=== PATIENT | female | born 1995 | race Caucasian/White ===

== ENCOUNTER 2017-08-18 09:38 | Emergency (ER) | payer OTHER ==
[2017-08-18 10:02] VITALS: BP 130/70
[2017-08-18] MEDS ORDERED: Ketorolac INJ* 30 MG/ML 1 ML VIAL IM ONE (11:35)
--- NOTE | 2017-08-18 11:41 | UC ---
Back Pain HPI - HPI Summary HPI Summary: 21 female presents to with complaints of mid back pain that began 2 days ago. States it is intermittent and feels tight and achey. Radiates into her ribs and front. Worse with palpation and movement. Denies nausea, vomiting, diarrhea, constipation, fever and chills. No lower back or abdominal pain. States this happened to her a month ago, was diagnosed with a strain and muscle relaxer and ibuprofen helped her and symptoms resolved. States she's always had these pains due to being overweight and big chested. No other PMHx. Has not taken any medication for the pain. No other complaints. Denies saddle anesthesia , baldder/bowel incontinence, weakness, numbness and tingling. Denies throbbing and pulsating. Denies urinary and genitalia symptoms. No known injury or trauma. - History of Current Complaint Chief Complaint: UCBackPain Stated Complaint: lower back pain Time Seen by Provider: 08/18/17 11:05 Hx Obtained From: Patient Hx Last Menstrual Period: implanon ?: No Onset/Duration: Sudden Onset, Lasting Days - 2, Still Present Timing: Intermittent, Lasting Minutes, Lasting Hours Severity Initially: Mild Severity Currently: Mild Pain Intensity: 3 Pain Scale Used: 0-10 Numeric Back Pain: Is Discrete @ - thoracic spine T7-T12 Character: Dull - tight, Aching Aggravating Factor(s): Movement, Lifting, Bending Alleviating Factor(s): Position Associated Signs And Symptoms: Positive: Negative. Negative: Weakness, Numbness , Bladder Incontinence, Bowel Incontinence, Pain with Weight Bearing - Risk Factors AAA Risk Factors: Negative Cauda Equina Risk Factors: Negative Epidural Abscess Risk Factors: Negative - Allergies/Home Medications Allergies/Adverse Reactions: Allergies Allergy/AdvReac Type Severity Reaction Status Date / Time seasonal Allergy Congestion Uncoded 08/18/17 10:02 PMH/Surg Hx/FS Hx/Imm Hx - Additional Past Medical History Additional PMH: Denies DM HTN and asthma Other History Of: Negative For: HIV, Hepatitis B, Hepatitis C, Anticoagulant Therapy - Surgical History Surgical History: Yes Surgery Procedure, Year, and Place: T & A, 1999, [facility] Dr. Lundy - Family History Known Family History: Positive: Hypertension, Diabetes Negative: Cardiac Disease, Respiratory Disease - Social History Alcohol Use: None Substance Use Type: None Smoking Status (MU): Former Smoker Household Exposure Type: Cigarettes - Immunization History Most Recent Influenza Vaccination: Not the Season Most Recent Tetanus Shot: FALL 2014 Vaccination Up to Date: Yes Review of Systems Constitutional: Negative Respiratory: Negative Cardiovascular: Negative Gastrointestinal: Negative Genitourinary: Negative Neurovascular: Negative Musculoskeletal: Arthralgia, Decreased ROM, Myalgia Neurological: Negative All Other Systems Reviewed And Are Negative: Yes Physical Exam Triage Information Reviewed: Yes Appearance: Well-Appearing, No Pain Distress, Well-Nourished Vital Signs: Initial Vital Signs Temp 97.8 F 08/18/17 09:57 Pulse 64 08/18/17 09:57 Resp 18 08/18/17 09:57 BP 130/70 08/18/17 09:57 Pulse Ox 100 08/18/17 09:57 Vital Signs Reviewed: Yes Eyes: Positive: Conjunctiva Clear Neck: Positive: Supple, Nontender Respiratory: Positive: Chest non-tender, Lungs clear, Normal breath sounds, No respiratory distress, No accessory muscle use. Negative: Respiratory distress, Decreased breath sounds, Expiration Cardiovascular: Positive: RRR, No Murmur, Pulses Normal - 2+ radial and pedal/ femoral, Brisk Capillary Refill Abdomen Description: Positive: Nontender, No Organomegaly, Soft. Negative: Bruit, CVA Tenderness (R), CVA Tenderness (L), Distended, Guarding, Pulsatile Mass Bowel Sounds: Positive: Present Musculoskeletal: Positive: Strength Intact, ROM Intact - however limited due to pain when twisting and flex/ext back, No Edema, Other: - pain on palpation of paraspinal muscles bilaterally at T7-T12 Neurological: Positive: Alert, Muscle Tone Normal - sensation and motor intact. normal gait Skin Exam: Normal Back Pain Course/Dx - Course Course Of Treatment: urinalysis obtained and negative. imaging not obtained due to no known injury or trauma and pain only on palpation of paraspinal muscles. palpation and movement exacerbates her back pain. given toradol while in UC. continue ibuprofen starting tomorrow along with muscle relaxer, as this has improved in the past for her. No other complaints. Educated that this could be other etiology other than MSK related that would need further labs and imaging if continues, worsens or new symptoms develop. She is aware of these symptoms and to seek medical attention if occur. Not strongly concerned for other etiology at this time, appears to be MSK related due to symptoms and PE findings. Follow up PCP. flexeril and ibuprofen, heat and rest. patient agrees and understands plan. normal vitals. - Differential Dx/Diagnosis Differential Diagnosis/HQI/PQRI: Strain, Sprain, Other - back pain, AAA Provider Diagnoses: back pain, muscle strain Discharge - Discharge Plan Condition: Stable Disposition: HOME Prescriptions: Cyclobenzaprine TAB* [Flexeril 10 MG TAB*] 10 mg PO BEDTIME #10 tab Ibuprofen TAB* [Motrin TAB* 600 MG] 600 mg PO Q6H PRN #20 tab PRN Reason: Pain Patient Education Materials: Muscle Strain (ED), Back Pain (ED) Referrals: KIRBY Catalan [Primary Care Provider] - Additional Instructions: Take prescribed medication as directed. Rest and apply heating pad. Do not take ibuprofen until tomorrow. Take with food. Any new or worsening signs/symptoms such as vomiting, fever, headache, diarrhea or worsening pain please seek medical attention promptly. Follow up with PCP within 1 week, sooner if needed especially if symptoms do not improve as further imaging and evaluation may be needed.
--- NOTE | 2017-08-20 07:32 | UC ---
Progress - Progress Note Progress Note: call patient. see how they are doing. ucx showed moderate strep b
== END 2017-08-18 11:57 | disposition home or self-care (01) ==
LOC: UCCORT 09:38
DX: M54.6 Pain in thoracic spine (principal); S23.3XXA Sprain of ligaments of thoracic spine, initial encounter; X58.XXXA Exposure to other specified factors, initial encounter; Y93.9 Activity, unspecified; Y92.9 Unspecified place or not applicable; Y99.9 Unspecified external cause status
CPT/HCPCS: 81003; 87077; 87086; 96372; 99212; G0463; J1885

== ENCOUNTER 2017-10-24 12:14 | Emergency (ER) | payer OTHER ==
[2017-10-24 13:30] VITALS: BP 143/77
== END 2017-10-24 14:04 | disposition left against medical advice (07) ==
LOC: UCCORT 12:14
DX: M54.9 Dorsalgia, unspecified (principal); M79.606 Pain in leg, unspecified; Z53.21 Procedure and treatment not carried out due to patient leaving prior to being seen by health care provider

== ENCOUNTER 2017-11-11 20:23 | Emergency (ER) | payer OTHER ==
[2017-11-11 20:43] VITALS: BP 131/85
--- NOTE | 2017-11-11 20:47 | UC ---
Throat Pain/Nasal Vlad HPI - HPI Summary HPI Summary: worsening sinus pain and nasal congestion over the past 3 days, fever yesterday - History of Current Complaint Chief Complaint: UCGeneralIllness Stated Complaint: COUGH,SINUSES Time Seen by Provider: 11/11/17 20:46 Hx Obtained From: Patient Hx Last Menstrual Period: 11/01/17 ?: No Onset/Duration: Sudden Onset, Lasting Days - 3, Still Present Severity: Moderate Pain Intensity: 6 Pain Scale Used: 0-10 Numeric Associated Signs & Symptoms: Positive: Sinus Discomfort, Nasal Discharge, Fever - Allergies/Home Medications Allergies/Adverse Reactions: Allergies Allergy/AdvReac Type Severity Reaction Status Date / Time seasonal Allergy Congestion Uncoded 11/11/17 20:36 PMH/Surg Hx/FS Hx/Imm Hx Previously Healthy: No Respiratory History: Asthma Other History Of: Negative For: HIV, Hepatitis B, Hepatitis C, Anticoagulant Therapy - Surgical History Surgical History: Yes Surgery Procedure, Year, and Place: T & A, 1999, [facility] Dr. Lundy - Family History Known Family History: Positive: Hypertension, Diabetes Negative: Cardiac Disease, Respiratory Disease - Social History Occupation: Unemployed Lives: With Family Alcohol Use: Occasionally Substance Use Type: None Smoking Status (MU): Former Smoker When Did the Patient Quit Smoking/Using Tobacco: 2014 Household Exposure Type: Cigarettes - Immunization History Most Recent Influenza Vaccination: Not the Season Most Recent Tetanus Shot: FALL 2014 Vaccination Up to Date: Yes Review of Systems Constitutional: Fever, Chills, Fatigue Skin: Negative Eyes: Negative ENT: Nasal Discharge, Sinus Congestion, Sinus Pain/Tenderness Respiratory: Negative Cardiovascular: Negative Gastrointestinal: Negative Genitourinary: Negative Motor: Negative Neurovascular: Negative Musculoskeletal: Negative Neurological: Negative Psychological: Negative Is Patient Immunocompromised?: No All Other Systems Reviewed And Are Negative: Yes Physical Exam Triage Information Reviewed: Yes Appearance: Well-Appearing, No Pain Distress, Obese Vital Signs: Initial Vital Signs Temp 98 F 11/11/17 20:37 Pulse 66 11/11/17 20:37 Resp 24 11/11/17 20:37 BP 131/85 11/11/17 20:37 Pulse Ox 99 11/11/17 20:37 Vital Signs Reviewed: Yes Eye Exam: Normal Eyes: Positive: Conjunctiva Clear ENT Exam: Normal ENT: Positive: Normal ENT inspection, Hearing grossly normal, Pharynx normal, Nasal congestion, Nasal drainage, TMs normal, Sinus tenderness, Uvula midline. Negative: Tonsillar swelling, Tonsillar exudate, Trismus, Muffled voice, Hoarse voice, Dental tenderness Dental Exam: Normal Neck exam: Normal Neck: Positive: Supple, Nontender, No Lymphadenopathy Respiratory Exam: Normal Respiratory: Positive: Chest non-tender, Lungs clear, Normal breath sounds, No respiratory distress, No accessory muscle use Cardiovascular Exam: Normal Cardiovascular: Positive: RRR, No Murmur, Pulses Normal, Brisk Capillary Refill Musculoskeletal Exam: Normal Musculoskeletal: Positive: Strength Intact, ROM Intact, No Edema Neurological Exam: Normal Neurological: Positive: Alert, Muscle Tone Normal Psychological Exam: Normal Psychological: Positive: Normal Response To Family Skin Exam: Normal Throat Pain/Nasal Course/Dx - Course Assessment/Plan: Patient understands this is most likely a viral illness---and muscinex and flonase with ibuprofen for pain is the treatmen of choice. Should symptoms not resolve in next week or significantly worsen with fever she may start antibiodic and follow with pcp prn - Differential Dx/Diagnosis Provider Diagnoses: Acute Rhinosinusitis Discharge - Discharge Plan Condition: Stable Disposition: HOME Prescriptions: Amoxicillin/Clavulanate TAB* [Augmentin TAB 875*] 875 mg PO BID #20 tab Fluticasone NASAL SPRAY 50MCG* [Flonase NASAL SPRAY 50MCG*] 2 spray BOTH NARES DAILY #1 btl Patient Education Materials: Rhinosinusitis (ED), How to Use Nasal Converse (ED) Referrals: KIRBY Catalan [Primary Care Provider] - If Needed
== END 2017-11-11 20:58 | disposition home or self-care (01) ==
LOC: UCCORT 20:23
DX: J01.90 Acute sinusitis, unspecified (principal)
CPT/HCPCS: 99212; G0463

== ENCOUNTER 2017-12-23 10:30 | Emergency (ER) | payer OTHER ==
[2017-12-23 11:21] VITALS: BP 128/82
--- NOTE | 2017-12-23 12:02 | RAD ---
HISTORY: Left knee injury COMPARISONS: None VIEWS: 4, Frontal, lateral, axial, and oblique views of the left knee FINDINGS: BONE DENSITY: Normal. BONES: There is no displaced fracture. JOINTS: There is no arthropathy. There is no suprapatellar joint effusion or lipohemarthrosis. ALIGNMENT: There is no dislocation. SOFT TISSUES: Unremarkable. OTHER FINDINGS: None. IMPRESSION: NO ACUTE OSSEOUS INJURY. IF SYMPTOMS PERSIST, RECOMMEND REPEAT IMAGING.
--- NOTE | 2017-12-23 12:09 | UC ---
Knee Pain HPI - HPI Summary HPI Summary: 22 yo female twisted left knee yesterday now unable to bear wt hx of bilateral patello femoral pain syndrome has knee immobilizer at home - History of Current Complaint Chief Complaint: UCLowerExtremity Stated Complaint: S/P FALL-LFT KNEE INJURY Time Seen by Provider: 12/23/17 11:30 Hx Obtained From: Patient Hx Last Menstrual Period: 12/17/17 Onset/Duration: Sudden Onset, Still Present Severity Initially: Moderate Severity Currently: Moderate Pain Intensity: 5 Pain Scale Used: 0-10 Numeric Character: Dull, Aching, Throbbing Aggravating Factor(s): Movement, Weight Bearing Alleviating Factor(s): Rest Associated Signs And Symptoms: Positive: Swelling Able to Bear Weight: No - not today - Allergies/Home Medications Allergies/Adverse Reactions: Allergies Allergy/AdvReac Type Severity Reaction Status Date / Time seasonal Allergy Congestion Uncoded 12/23/17 11:22 Home Medications: Home Medications Ibuprofen TAB* [Motrin TAB* 600 MG] 600 mg PO Q6H PRN 12/23/17 [History Confirmed 12/23/17] PMH/Surg Hx/FS Hx/Imm Hx Previously Healthy: Yes Other History Of: Negative For: HIV, Hepatitis B, Hepatitis C, Anticoagulant Therapy - Surgical History Surgical History: Yes Surgery Procedure, Year, and Place: T & A, 1999, [facility] Dr. Lundy - Family History Known Family History: Positive: Hypertension, Diabetes Negative: Cardiac Disease, Respiratory Disease - Social History Alcohol Use: Occasionally Substance Use Type: None Smoking Status (MU): Former Smoker When Did the Patient Quit Smoking/Using Tobacco: 2014 Household Exposure Type: Cigarettes - Immunization History Most Recent Influenza Vaccination: Not the Season Most Recent Tetanus Shot: FALL 2014 Vaccination Up to Date: Yes Review of Systems Constitutional: Negative Skin: Negative Eyes: Negative ENT: Negative Respiratory: Negative Cardiovascular: Negative Gastrointestinal: Negative Genitourinary: Negative Motor: Negative Neurovascular: Negative Musculoskeletal: Arthralgia Neurological: Negative Psychological: Negative Is Patient Immunocompromised?: No All Other Systems Reviewed And Are Negative: Yes Physical Exam Triage Information Reviewed: Yes Appearance: Well-Appearing, No Pain Distress, Well-Nourished Vital Signs: Initial Vital Signs Temp 97.8 F 12/23/17 11:12 Pulse 64 12/23/17 11:12 Resp 22 12/23/17 11:12 BP 128/82 12/23/17 11:12 Pulse Ox 99 12/23/17 11:12 Vital Signs Reviewed: Yes Eyes: Positive: Conjunctiva Clear ENT: Positive: Hearing grossly normal. Negative: Nasal congestion, Nasal drainage, Tonsillar swelling, Tonsillar exudate, Trismus, Muffled voice Dental Exam: Normal Neck: Positive: Supple, Nontender, No Lymphadenopathy Respiratory Exam: Normal Respiratory: Positive: Lungs clear, Normal breath sounds, No respiratory distress, No accessory muscle use Cardiovascular: Positive: RRR Bowel Sounds: Positive: Present Musculoskeletal Exam: Normal Neurological Exam: Normal Knee Pain Course/Dx - Differential Dx/Diagnosis Provider Diagnoses: left knee sprain Discharge - Sign-Out/Discharge Documenting (check all that apply): Discharge/Admit/Transfer - Discharge Plan Condition: Stable Disposition: HOME Patient Education Materials: Knee Sprain (ED) Referrals: Harris Conti MD [Medical Doctor] - 5 Days (if not improved ) Additional Instructions: rest elevate ice knee immobilizer use crutches until able to bear wt pain free - Billing Disposition and Condition Condition: STABLE Disposition: HOME
== END 2017-12-23 12:18 | disposition home or self-care (01) ==
LOC: UCCORT 10:30
DX: S83.92XA Sprain of unspecified site of left knee, initial encounter (principal); X50.0XXA Overexertion from strenuous movement or load, initial encounter; Y92.9 Unspecified place or not applicable; Z87.891 Personal history of nicotine dependence
CPT/HCPCS: 99212; G0463

== ENCOUNTER 2018-03-16 18:33 | Emergency (ER) | payer OTHER ==
[2018-03-16 18:46] VITALS: BP 125/95
--- NOTE | 2018-03-16 19:14 | UC ---
UC General HPI - HPI Summary HPI Summary: The patient is a 22 yo female that has had intermittent episodes of right sided numbness (no pain or tingling) for three days Symptoms last 10-20 minutes and occur multiple time a day This started three days ago She fells the numbness start in her right shoulder and travels down to the hand Then her right flank and leg get numb No motor issues No tremors no headache This can occur at night and wake her up After these episodes she feels completely drained She has never had this happen before She is 12 weeks no hx heart murmur or sz hx of a subdural hematoma - History of Current Complaint Chief Complaint: UCGeneralIllness Stated Complaint: NUMBNESS RIGHT SIDE / PAIN Time Seen by Provider: 03/16/18 18:52 Hx Obtained From: Patient Hx Last Menstrual Period: 12/17/17 Onset/Duration: Sudden Onset, Lasting Minutes Timing: Intermittent Episodes Lasting: - 10-30 minutes Onset Severity: Moderate Current Severity: None Pain Intensity: 0 - Allergy/Home Medications Allergies/Adverse Reactions: Allergies Allergy/AdvReac Type Severity Reaction Status Date / Time seasonal Allergy Congestion Uncoded 03/16/18 18:46 Home Medications: Home Medications NK [No Home Medications Reported] 03/16/18 [History Confirmed 03/16/18] PMH/Surg Hx/FS Hx/Imm Hx Previously Healthy: Yes Respiratory History: Asthma Other History Of: Negative For: HIV, Hepatitis B, Hepatitis C, Anticoagulant Therapy - Surgical History Surgical History: Yes Surgery Procedure, Year, and Place: T & A, 1999, [facility] Dr. Lundy - Family History Known Family History: Positive: Hypertension, Diabetes Negative: Cardiac Disease, Respiratory Disease - Social History Alcohol Use: None Substance Use Type: None Smoking Status (MU): Former Smoker When Did the Patient Quit Smoking/Using Tobacco: 2014 Household Exposure Type: Cigarettes - Immunization History Most Recent Influenza Vaccination: Not the 2013/2014 Season Most Recent Tetanus Shot: FALL 2014 Vaccination Up to Date: Yes Review of Systems Constitutional: Negative Skin: Negative Eyes: Negative ENT: Negative Respiratory: Negative Cardiovascular: Negative Gastrointestinal: Negative Genitourinary: Negative Motor: Negative Neurovascular: Negative Musculoskeletal: Negative Neurological: Numbness Psychological: Negative Is Patient Immunocompromised?: No All Other Systems Reviewed And Are Negative: Yes Physical Exam Triage Information Reviewed: Yes Appearance: Well-Appearing, No Pain Distress, Well-Nourished Vital Signs: Initial Vital Signs Temp 97.7 F 03/16/18 18:40 Pulse 71 03/16/18 18:40 Resp 16 03/16/18 18:40 BP 125/95 03/16/18 18:40 Pulse Ox 100 03/16/18 18:40 Vital Signs Reviewed: Yes Eyes: Positive: Conjunctiva Clear, Other: - eomi/perrl ENT: Positive: Hearing grossly normal, TMs normal, Uvula midline. Negative: Pharyngeal erythema, Nasal congestion, Nasal drainage, Tonsillar swelling, Tonsillar exudate, Trismus, Muffled voice, Hoarse voice, Sinus tenderness Neck: Positive: Supple, Nontender, No Lymphadenopathy Respiratory: Positive: Lungs clear, Normal breath sounds, No respiratory distress, No accessory muscle use Cardiovascular: Positive: RRR, No Murmur Abdomen Description: Positive: Nontender, No Organomegaly. Negative: CVA Tenderness (R), CVA Tenderness (L) Musculoskeletal: Positive: ROM Intact, No Edema Neurological Exam: Normal Neurological: Positive: Alert, Muscle Tone Normal, Other: - cn2-12 intact, strenth 5/5, sensory intact to light touch, DTRs symmetrical Skin Exam: Normal Course/Dx - Course Course Of Treatment: I advised she go were she could be evaluated by a neurologist. [facility] called. She desires to go by POV... driving - Differential Dx - Multi-Symptom Provider Diagnoses: right sided numbness of uncertain cause. 12 week Discharge - Sign-Out/Discharge Documenting (check all that apply): Patient Departure - Discharge Plan Condition: Stable Disposition: TRANS HIGHER LVL OF CARE FAC Referrals: Beatriz Del Rosario MD [Primary Care Provider] - Additional Instructions: I suggest you have someone drive you directly to the ER at [facility] - Billing Disposition and Condition Condition: STABLE Disposition: Trans Higher Lvl of Care Fac
== END 2018-03-16 19:13 | disposition short-term general hospital (02) ==
LOC: UCCORT 18:33
DX: O26.891 Other specified pregnancy related conditions, first trimester (principal); R20.0 Anesthesia of skin; J45.909 Unspecified asthma, uncomplicated; Z91.09 Other allergy status, other than to drugs and biological substances; Z3A.12 12 weeks gestation of pregnancy; Z87.891 Personal history of nicotine dependence
CPT/HCPCS: 99212; G0463

== ENCOUNTER 2018-03-28 15:51 | Emergency (ER) | payer OTHER ==
[2018-03-28 16:00] VITALS: BP 109/94
--- NOTE | 2018-03-28 16:41 | ED ---
Neurological HPI - HPI Summary HPI Summary: 22-year-old female currently G1 at approximately 14 weeks gestation presents with intermittent numbness in her right arm over the last several weeks. He states that happens near daily with episodes occurring 2-3 times each day and lasting up to about 20 minutes or so. She was recently sent to the ER at [facility] and had an evaluation there including consultation with a neurologist. There is no imaging done but the referred her for MRI outpatient with her PCP. She states that she has a history of "brain bleed" this was following a head injury. She currently has no symptoms at all to include no numbness, difficulty with proprioception, weakness. There is no headache, nausea or visual changes. She has not followed up with her primary care physician since leaving [facility]. She also states that she has difficult to control asthma and was taken off her asthma medications by her primary. She is having no difficulty with breathing at present. - History of Current Complaint Chief Complaint: UCGeneralIllness Stated Complaint: RIGHT SIDE/HEAD COMPLAINT Time Seen by Provider: 03/28/18 16:20 Hx Obtained From: Patient Hx Last Menstrual Period: 12/26/17 Pain Intensity: 6 - Allergy/Home Medications Allergies/Adverse Reactions: Allergies Allergy/AdvReac Type Severity Reaction Status Date / Time seasonal Allergy Congestion Uncoded 03/28/18 16:00 PMH/Surg Hx/FS Hx/Imm Hx Previously Healthy: No - asthma Endocrine/Hematology History: Denies: Hx Anticoagulant Therapy, Hx Diabetes, Hx Thyroid Disease Cardiovascular History: Denies: Hx Congestive Heart Failure, Hx Deep Vein Thrombosis, Hx Hypertension , Hx Myocardial Infarction, Hx Pacemaker/ICD Respiratory History: Reports: Hx Asthma Denies: Hx Chronic Obstructive Pulmonary Disease (COPD), Hx Lung Cancer, Hx Pneumonia, Hx Pulmonary Embolism GI History: Denies: Hx Gall Bladder Disease, Hx Gastrointestinal Bleed, Hx Ulcer, Hx Urosepsis History: Denies: Hx Kidney Stones, Hx Renal Disease Sensory History: Denies: Hx Hearing Aid Neurological History: Denies: Hx Dementia, Hx Migraine, Hx Seizures, Hx Transient Ischemic Attacks (TIA) Psychiatric History: Reports: Hx Anxiety, Hx Depression Denies: Hx Panic Disorder, Hx Schizophrenia, Hx Bipolar Disorder - Surgical History Surgery Procedure, Year, and Place: T & A, 1999, [facility] Dr. Lundy Infectious Disease History: No Infectious Disease History: Denies: Hx Clostridium Difficile, Hx Hepatitis, Hx Human Immunodeficiency Virus (HIV), Hx of Known/Suspected MRSA, Hx Shingles, Hx Tuberculosis, Hx Known/ Suspected VRE, Hx Known/Suspected VRSA, History Other Infectious Disease, Traveled Outside the [place] in Last 30 Days - Family History Known Family History: Positive: Hypertension, Diabetes Negative: Cardiac Disease, Respiratory Disease - Social History Alcohol Use: None Substance Use Type: Reports: None Smoking Status (MU): Former Smoker Review of Systems Negative: Fever Negative: Photophobia, Blurred Vision Negative: Palpitations Negative: Shortness Of Breath Negative: Vomiting, Nausea Genitourinary: Negative Neurological: Other - denies visual changes. Feels a balloon-like pressure in the head occasionally Positive: Paresthesia. Negative: Weakness, Syncope, Slurred Speech All Other Systems Reviewed And Are Negative: Yes Physical Exam Triage Information Reviewed: Yes Vital Signs On Initial Exam: Initial Vitals Temp Pulse Resp BP Pulse Ox 97.1 F 68 16 109/94 100 03/28/18 15:57 03/28/18 15:57 03/28/18 15:57 03/28/18 15:57 03/28/18 15:57 Vital Signs Reviewed: Yes Appearance: Positive: Well-Appearing, No Pain Distress, Well-Nourished Skin: Positive: Warm, Skin Color Reflects Adequate Perfusion, Dry Head/Face: Positive: Normal Head/Face Inspection. Negative: Temporal Artery Tenderness Eyes: Positive: Normal, EOMI, Other: - Globes are soft ENT: Positive: Normal ENT inspection Neck: Positive: Supple, Nontender Respiratory/Lung Sounds: Positive: Clear to Auscultation, Breath Sounds Present Cardiovascular: Positive: RRR Abdomen Description: Positive: Nontender, No Organomegaly, Soft Musculoskeletal: Positive: Normal Neurological: Positive: Normal, Sensory/Motor Intact, Alert, Oriented to Person Place, Time, CN Intact II-III, Normal Gait, Other - Intact moving 2. discrimination in the right upper extremity. Normal strength, reflexes bilaterally upper extremities. Psychiatric: Positive: Normal Diagnostics - Vital Signs Vital Signs Temp Pulse Resp BP Pulse Ox 03/28/18 15:57 97.1 F 68 16 109/94 100 - Laboratory Lab Statement: Any lab studies that have been ordered have been reviewed, and results considered in the medical decision making process. Course/Dx - Course Course Of Treatment: Patient has no symptoms at present and is basically here for follow-up. She is supposed to see her primary care physician to have outpatient MRI scheduled. Apparently, the primary care physician is to be moving out of the area in 2 months. I have suggested to the patient to go to the office to ensure this follow-up. I have also given her outpatient neurology follow-up. Her primary care physician also covers her OB needs. - Diagnoses Provider Diagnoses: Intermittent paresthesia of right hand and foot, Second trimester Discharge - Sign-Out/Discharge Documenting (check all that apply): Patient Departure - Discharge Plan Condition: Good Disposition: HOME Patient Education Materials: Paresthesia (ED) Referrals: Beatriz Del Rosario MD [Primary Care Provider] - Harsha Bustos MD [Medical Doctor] - Additional Instructions: 1. Follow-up with Dr. Del Rosario as soon as possible. Discussed the MRI and other follow-up instructions from [facility] with her. Have her refer you to new AUDIT DIRECTOR. 2. Call to follow up with the neurologist. Go to an ER with severe headaches, worsened neurologic symptoms to include numbness/weakness, worse or other concerns. - Billing Disposition and Condition Condition: GOOD Disposition: Home
== END 2018-03-28 16:44 | disposition home or self-care (01) ==
LOC: UCCORT 15:51
DX: O99.89 Other specified diseases and conditions complicating pregnancy, childbirth and the puerperium (principal); R20.2 Paresthesia of skin; Z91.09 Other allergy status, other than to drugs and biological substances; Z87.891 Personal history of nicotine dependence
CPT/HCPCS: 99211; G0463

== ENCOUNTER 2018-10-15 14:22 | Emergency (ER) | payer OTHER ==
[2018-10-15 15:10] VITALS: BP 119/65
--- NOTE | 2018-10-15 16:32 | UC ---
UC General HPI - HPI Summary HPI Summary: pt states she was diagnosed with preeclampsia during her delivery 4 weeks ago. she recovered post delivery and has no current tx. she presents today because she has had L facial pressure x 3 days which "is not my sinuses" along with a sharp pain behind her L eye with no visual changes. Today, the sharp pain radiates into the L side of her neck. Pt states she had a small brain bleed post trauma in 2013. she wants to ensure this is not brain bleed or preeclampsia related. Denies URI, dental pain, ST, ear pain, focal deficits. - History of Current Complaint Chief Complaint: UCGeneralIllness Stated Complaint: LEFT SIDED FACIAL PAIN Time Seen by Provider: 10/15/18 16:18 Hx Obtained From: Patient Hx Last Menstrual Period: 12/26/17 Timing: Constant Pain Intensity: 7 Associated Signs & Symptoms: Negative: Fever - Allergy/Home Medications Allergies/Adverse Reactions: Allergies Allergy/AdvReac Type Severity Reaction Status Date / Time seasonal Allergy Congestion Uncoded 10/15/18 15:02 PMH/Surg Hx/FS Hx/Imm Hx - Additional Past Medical History Additional PMH: 4 weeks post , preeclampsia, Brain bleed 2012. Other History Of: Negative For: HIV, Hepatitis B, Hepatitis C, Anticoagulant Therapy - Surgical History Surgical History: Yes Surgery Procedure, Year, and Place: T & A, 1999, [facility] Dr. Lundy - Family History Known Family History: Positive: Hypertension, Diabetes Negative: Cardiac Disease, Respiratory Disease - Social History Lives: With Family Alcohol Use: Rare Substance Use Type: None Smoking Status (MU): Never Smoked Tobacco When Did the Patient Quit Smoking/Using Tobacco: 2014 Household Exposure Type: Cigarettes - Immunization History Most Recent Influenza Vaccination: Not the 2013/2014 Season Most Recent Tetanus Shot: FALL 2014 Vaccination Up to Date: Yes Review of Systems All Other Systems Reviewed And Are Negative: Yes Constitutional: Negative: Fever Skin: Negative: Rash Eyes: Negative: Blurred Vision, Diplopia, Drainage, Eye Redness, Photophobia ENT: Negative: Dental Pain, Sore Throat, Ear Ache, Nasal Discharge, Sinus Congestion, Sinus Pain/Tenderness Respiratory: Positive: Negative Cardiovascular: Positive: Negative Gastrointestinal: Positive: Negative Genitourinary: Positive: Negative Motor: Positive: Negative Neurovascular: Positive: Negative Musculoskeletal: Positive: Negative Neurological: Positive: Headache. Negative: Weakness, Paresthesia, Numbness Psychological: Positive: Negative Physical Exam Triage Information Reviewed: Yes Appearance: Well-Appearing Vital Signs: Initial Vital Signs Temp 97.2 F 10/15/18 15:02 Pulse 72 10/15/18 15:02 Resp 20 10/15/18 15:02 BP 119/65 10/15/18 15:02 Pulse Ox 100 10/15/18 15:02 Vital Signs Reviewed: Yes Eyes: Positive: Conjunctiva Clear, Other: - PERRL, EOMI ENT: Positive: Pharynx normal, TMs normal. Negative: Nasal drainage, Sinus tenderness Dental: Negative: Percussion Tenderness @, Gross Decay/Caries @, Dental Fracture @, Abscess @ Neck: Positive: Supple, Nontender, No Lymphadenopathy, Other: - No carotid bruits. Negative: Nuchal Rigidity Respiratory: Positive: Lungs clear, Normal breath sounds Cardiovascular: Positive: RRR, No Murmur Abdomen Description: Positive: Nontender, No Organomegaly, Soft Bowel Sounds: Positive: Present Musculoskeletal: Positive: ROM Intact Neurological: Positive: Other: - A&Ox3. CN 2-12 intact. Steady gait. Negative rhomberg and pronator drift. 5/5 strength and 2+ reflexes x4. sensation intact x4. Diagnostics - Laboratory Diagnostic Studies Completed/Ordered: u/a=protein, bilirubin, leukocytes. Course/Dx - Course Course Of Treatment: case d/w Dr Romero. No CT here thus ER transfer advised and pt agrees. EMS declined. Pt and family will drive to [facility] despite risk of MVA, delay of care, worsening, disability, . She is A&Ox3 thus I must respect ems refusal. [facility] ER called. report of L face pressure , sharp pain behind L eye and into neck plus 1 month and had preeclampsia hx advised. since no CT here, pt transfer. Report given to Michelle Underwood NP. - Differential Dx - Multi-Symptom Differential Diagnoses: Other - NO HTN, THUS NO CONCERN FOR PREECLAMPSIA/ ECLAMPSIA. NO NOT EXCLUDE INTRACRANIAL PATHOLOGY AND NO CT HERE THUS PT BEING TRANSFEREED TO THE ER. - Diagnoses Provider Diagnosis: Headache Discharge - Sign-Out/Discharge Documenting (check all that apply): Patient Departure All imaging exams completed and their final reports reviewed: No Studies - Discharge Plan Condition: Stable Disposition: TRANS [facility] Referrals: Mary Ellen Keenan MD [Primary Care Provider] - Additional Instructions: LEAVE HERE AND GO DIRECTLY TO THE [facility] DISCUSSED - Billing Disposition and Condition Condition: STABLE Disposition: Trans Higher Lvl of Care Fac
== END 2018-10-15 17:00 | disposition short-term general hospital (02) ==
LOC: UCCORT 14:22
DX: O99.89 Other specified diseases and conditions complicating pregnancy, childbirth and the puerperium (principal); R51 Headache; Z91.09 Other allergy status, other than to drugs and biological substances
CPT/HCPCS: 81003; 87086; 99212; G0463

== ENCOUNTER 2019-02-24 07:00 | Emergency (ER) | payer OTHER ==
[2019-02-24 07:19] VITALS: BP 130/69
--- NOTE | 2019-02-24 07:51 | ED ---
Lower Extremity - HPI Summary HPI Summary: 23 yr old female with the complaint of left knee. The patient has a history of long standing patello femoral syndrome and obesity. She has suffered with knee pain for over a decade. She fell over a year ago, and was seen, referred to Dr Conti, had an MRI, and then PT. The patient states she has arthritis changes already. She has been having exacerbation of pain behind her knee cap, and feels like she might have fluid behind it. - History of Current Complaint Chief Complaint: UCLowerExtremity Stated Complaint: LT KNEE COMPLAINT Time Seen by Provider: 02/24/19 07:25 Hx Last Menstrual Period: Depo-Provera Pain Intensity: 5 - Allergies/Home Medications Allergies/Adverse Reactions: Allergies Allergy/AdvReac Type Severity Reaction Status Date / Time No Known Allergies Allergy Verified 02/24/19 07:16 Home Medications: Home Medications Albuterol HFA INHALER* [Ventolin HFA Inhaler*] 1 - 2 puff INH Q4H PRN 02/24/19 [ History Confirmed 02/24/19] Budesonide/Formote 160/4.5(NF) [Symbicort 160/4.5 (NF)] 2 puff INH DAILY [History Confirmed 02/24/19] Ibuprofen TAB* [Advil TAB*] 800 mg PO Q8H PRN 02/24/19 [History Confirmed ] medroxyPROGESTERone ACETATE* [DEPO-Provera] 150 mg IM Q90D 02/24/19 [History Confirmed 02/24/19] PMH/Surg Hx/FS Hx/Imm Hx Endocrine/Hematology History: Denies: Hx Anticoagulant Therapy, Hx Diabetes, Hx Thyroid Disease Cardiovascular History: Denies: Hx Congestive Heart Failure, Hx Deep Vein Thrombosis, Hx Hypertension , Hx Myocardial Infarction, Hx Pacemaker/ICD Respiratory History: Reports: Hx Asthma Denies: Hx Chronic Obstructive Pulmonary Disease (COPD), Hx Lung Cancer, Hx Pneumonia, Hx Pulmonary Embolism GI History: Denies: Hx Gall Bladder Disease, Hx Gastrointestinal Bleed, Hx Ulcer, Hx Urosepsis History: Denies: Hx Kidney Stones, Hx Renal Disease Neurological History: Denies: Hx Dementia, Hx Migraine, Hx Seizures, Hx Transient Ischemic Attacks (TIA) Psychiatric History: Reports: Hx Anxiety, Hx Depression Denies: Hx Panic Disorder, Hx Schizophrenia, Hx Bipolar Disorder - Surgical History Surgery Procedure, Year, and Place: T & A, 1999, [facility] Dr. Lundy Infectious Disease History: No Infectious Disease History: Denies: Hx Clostridium Difficile, Hx Hepatitis, Hx Human Immunodeficiency Virus (HIV), Hx of Known/Suspected MRSA, Hx Shingles, Hx Tuberculosis, Hx Known/ Suspected VRE, Hx Known/Suspected VRSA, History Other Infectious Disease, Traveled Outside the [place] in Last 30 Days - Family History Known Family History: Positive: Hypertension, Diabetes Negative: Cardiac Disease, Respiratory Disease - Social History Lives: With Family Alcohol Use: None Substance Use Type: Reports: None Smoking Status (MU): Never Smoked Tobacco Review of Systems Constitutional: Negative Positive: Other - left knee pain All Other Systems Reviewed And Are Negative: Yes Physical Exam Triage Information Reviewed: Yes Vital Signs On Initial Exam: Initial Vitals Temp Pulse Resp BP Pulse Ox 97.8 F 66 16 130/69 100 02/24/19 07:13 02/24/19 07:13 02/24/19 07:13 02/24/19 07:13 02/24/19 07:13 Vital Signs Reviewed: Yes Appearance: Positive: Well-Appearing, No Pain Distress Skin: Positive: Warm, Skin Color Reflects Adequate Perfusion Head/Face: Positive: Normal Head/Face Inspection Eyes: Positive: EOMI, ÓSCAR ENT: Positive: Normal ENT inspection Neck: Positive: Nontender Respiratory/Lung Sounds: Positive: Clear to Auscultation Cardiovascular: Positive: RRR. Negative: Murmur Abdomen Description: Negative: Distended Musculoskeletal: Positive: Other - left knee without effusion, without redness, without bruise. She has mild patellar tenderness. She has full extension, and flexion. Neurological: Positive: Sensory/Motor Intact, Alert, Oriented to Person Place, Time, CN Intact II-III, Speech Normal Psychiatric: Positive: Normal Diagnostics - Vital Signs Vital Signs Temp Pulse Resp BP Pulse Ox 02/24/19 07:13 97.8 F 66 16 130/69 100 - Laboratory Lab Statement: Any lab studies that have been ordered have been reviewed, and results considered in the medical decision making process. Lower Extremity Course/Dx - Diagnoses Provider Diagnoses: Knee pain, left Discharge - Sign-Out/Discharge Documenting (check all that apply): Patient Departure All imaging exams completed and their final reports reviewed: Yes - Discharge Plan Condition: Good Disposition: HOME Patient Education Materials: Knee Pain (ED) Referrals: Harris Conti MD [Medical Doctor] - 1 Day Mary Ellen Keenan MD [Primary Care Provider] - 2 Days
== END 2019-02-24 07:59 | disposition home or self-care (01) ==
LOC: UCCORT 07:00
DX: M22.2X2 Patellofemoral disorders, left knee (principal)
CPT/HCPCS: 99211; G0463